=== PATIENT | male | born 1995 | race Caucasian/White ===

== ENCOUNTER 2021-02-05 16:21 | Outpatient (REF) | payer OTHER, SELFPAY ==
--- NOTE | ~2021-02-05 | XR_ITS ---
EXAMINATION: XR LUMBOSACRAL SPINE CLINICAL INFORMATION: Low back pain COMPARISON: None TECHNIQUE: Three views of the lumbosacral spine. FINDINGS: The vertebral bodies and posterior elements are unremarkable. A tiny superior endplate osteophyte present ventrally at L5. The disc spaces are preserved and the vertebral alignment is normal. The paraspinal soft tissues are normal. XR/XR lumbar spine 2-3V IMPRESSION: Unremarkable examination.
== END 2021-02-05 16:22 | disposition home or self-care (01) ==
LOC: HO.HMGCX 16:21
PROVIDERS: PCP Pediatrics; Visit Provider Nurse Practitioner Family
DX: M54.5 Low back pain (principal)
CPT/HCPCS: 72100

== ENCOUNTER 2023-06-09 12:39 | Emergency (ER) | payer OTHER, SELFPAY ==
--- NOTE | ~2023-06-09 | XR_ITS ---
EXAMINATION: XR ELBOW, RIGHT CLINICAL INFORMATION: Fall. Pain. COMPARISON: None available. TECHNIQUE: AP, lateral, and oblique views of the right elbow. FINDINGS: Mildly displaced, oblique fracture through the anterolateral aspect of the radial head which contacts the articular surface where there is approximately 0.1 cm of cortical step off. No additional fracture or dislocation. No joint space narrowing or marginal osteophytes. No osseous erosion. Moderate joint effusion. XR/XR elbow RT min 3V IMPRESSION: Mildly displaced, oblique fracture through the anterolateral aspect of the radial head which contacts the articular surface. Moderate joint effusion.
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
[2023-06-09 12:52] VITALS: BP 130/90; PULSE 83; RESP 18; TEMP 36.7; O2SAT 97; BMI 31.3
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
[2023-06-09] MEDS: HYDROcodone Bit/Acetam 5/325 TABLET 1 TAB PO (14:03)
== END 2023-06-09 15:13 | disposition home or self-care (01) ==
PROVIDERS: Emergency Provider Emergency Medicine; PCP Pediatrics
DX: S52.121A Displaced fracture of head of right radius, initial encounter for closed fracture (principal); S09.90XA Unspecified injury of head, initial encounter; V18.0XXA Pedal cycle driver injured in noncollision transport accident in nontraffic accident, initial encounter; Y93.55 Activity, bike riding; Y92.414 Local residential or business street as the place of occurrence of the external cause; Y99.9 Unspecified external cause status
CPT/HCPCS: 70450; 73080; 99284

== ENCOUNTER 2023-06-16 10:30 | Outpatient (AMB) | payer OTHER, SELFPAY ==
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
[2023-06-16 10:43] VITALS: BMI 31.3
== END 2023-06-16 10:58 | disposition home or self-care (01) ==
PROVIDERS: PCP Pediatrics; Visit Provider Physician Assistant
DX: S52.122A Displaced fracture of head of left radius, initial encounter for closed fracture (principal)
CPT/HCPCS: 99204

== ENCOUNTER 2023-06-16 11:22 | Outpatient (REF) | payer OTHER, SELFPAY ==
--- NOTE | ~2023-06-16 | XR_ITS ---
EXAMINATION: XR ELBOW, RIGHT CLINICAL INFORMATION: Radial head fracture COMPARISON: 06/09/2023 TECHNIQUE: AP, lateral, and oblique views of the right elbow. FINDINGS: Moderate joint effusion. Redemonstration of mildly displaced intra-articular, oblique fracture through the anterolateral aspect of the radial head with mild cortical step-off. Moderate joint effusion. XR/XR elbow RT min 3V IMPRESSION: Redemonstration of mildly displaced intra-articular, oblique fracture through the anterolateral aspect of the radial head. Redemonstration of mild cortical step-off which appears more pronounced.
== END 2023-06-16 11:23 | disposition home or self-care (01) ==
LOC: HO.HOSX 11:22
PROVIDERS: Visit Provider Physician Assistant
DX: S52.124A Nondisplaced fracture of head of right radius, initial encounter for closed fracture (principal)
CPT/HCPCS: 73080

== ENCOUNTER 2023-07-16 12:49 | Outpatient (AMB) | payer OTHER, SELFPAY ==
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
[2023-07-16 13:00] VITALS: BMI 31.3
== END 2023-07-16 14:21 | disposition home or self-care (01) ==
PROVIDERS: PCP Pediatrics; Visit Provider Physician Assistant
DX: S52.124A Nondisplaced fracture of head of right radius, initial encounter for closed fracture (principal); V18.0XXA Pedal cycle driver injured in noncollision transport accident in nontraffic accident, initial encounter
CPT/HCPCS: 99213

== ENCOUNTER 2023-07-16 15:57 | Outpatient (REF) | payer OTHER, SELFPAY ==
--- NOTE | ~2023-07-16 | XR_ITS ---
EXAMINATION: XR ELBOW, RIGHT CLINICAL INFORMATION: Pain COMPARISON: 06/16/2020. TECHNIQUE: AP, lateral, and oblique views of the right elbow. FINDINGS: Mildly displaced, minimally depressed radial head fracture with intra-articular extension is unchanged. Moderate effusion is unchanged. XR/XR elbow RT min 3V IMPRESSION: No change right radial head fracture and moderate effusion.
== END 2023-07-16 15:58 | disposition home or self-care (01) ==
LOC: HO.HOSX 15:57
PROVIDERS: Visit Provider Physician Assistant
DX: S52.124D Nondisplaced fracture of head of right radius, subsequent encounter for closed fracture with routine healing (principal)
CPT/HCPCS: 73080

== ENCOUNTER 2023-08-14 09:11 | Outpatient (AMB) | payer OTHER, SELFPAY ==
[2023-08-14 09:12] VITALS: BMI 31.3
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
== END 2023-08-14 09:34 | disposition home or self-care (01) ==
PROVIDERS: PCP Pediatrics; Visit Provider Physician Assistant
DX: S52.124D Nondisplaced fracture of head of right radius, subsequent encounter for closed fracture with routine healing (principal)
CPT/HCPCS: 99213

== ENCOUNTER 2023-08-14 11:10 | Outpatient (REF) | payer OTHER, SELFPAY ==
--- NOTE | ~2023-08-14 | XR_ITS ---
EXAMINATION: XR ELBOW, RIGHT CLINICAL INFORMATION: Pain and unspecified [email or web address] COMPARISON: 07/16/2023. TECHNIQUE: AP, lateral, and oblique views of the right elbow. FINDINGS: Redemonstration of mildly displaced, radial head fracture with intra-articular extension. Fracture lines are still visible, but appear less distinct, suggesting some interval callus formation. Joint effusion. XR/XR elbow RT min 3V IMPRESSION: Healing right radial head fracture with moderate joint effusion.
== END 2023-08-14 11:11 | disposition home or self-care (01) ==
LOC: HO.HOSX 11:10
PROVIDERS: Visit Provider Physician Assistant
DX: S52.124D Nondisplaced fracture of head of right radius, subsequent encounter for closed fracture with routine healing (principal)
CPT/HCPCS: 73080